=== PATIENT | male | born 1990 ===

== ENCOUNTER 2016-07-16 20:09 | Emergency (ER) | payer SELFPAY ==
[~2016-07-16] VITALS: Ht 170.2 cm; Wt 81.8 kg
[2016-07-16 20:12] VITALS: Ht 170.2 cm; Wt 81.8 kg
== END 2016-07-16 20:25 | disposition left against medical advice (07) ==
LOC: E/R 20:09
DX: Z53.21 Procedure and treatment not carried out due to patient leaving prior to being seen by health care provider (principal)